=== PATIENT | male | born 1975 | race African-American/Black ===

== ENCOUNTER 2019-11-10 23:25 | Emergency (ER) | payer SELFPAY ==
[2019-11-10 23:41] VITALS: BP 125/75
[2019-11-11] MEDS ORDERED: TETRACAINE HCL 0.5% OPH SOLN 4 ML OD ONE (02:45)
--- NOTE | 2019-11-11 03:01 | ER Document Report ---
ED General - General Chief Complaint: Foreign Body in Eye Stated Complaint: METAL IN EYE Time Seen by Provider: 11/11/19 02:45 Notes: 44-year-old male presents with left eye pain that started yesterday. Patient was cutting metal without eye protection and feels as though something got into his left eye. Patient denies wearing glasses or contacts. Patient will not allow for exam at this time. Denies fever. TRAVEL OUTSIDE OF THE [place] IN LAST 30 DAYS: No - Related Data Allergies/Adverse Reactions: No Known Allergies Allergy (Unverified 11/11/19 00:30) Past Medical History - General Information source: Patient - Social History Smoking Status: Current Every Day Smoker Family History: None Patient has suicidal ideation: No Patient has homicidal ideation: No Review of Systems - Review of Systems Notes: Constitutional: Negative for fever. HENT: Negative for sore throat. Eyes: Positive for foreign body sensation in left eye. Negative for visual changes. Cardiovascular: Negative for chest pain. Respiratory: Negative for shortness of breath. Gastrointestinal: Negative for abdominal pain, vomiting or diarrhea. Genitourinary: Negative for dysuria. Musculoskeletal: Negative for back pain. Skin: Negative for rash. Neurological: Negative for headaches, weakness or numbness. 10 point ROS negative except as marked above and in HPI. Physical Exam - Vital signs Vitals: Temp Pulse Resp BP Pulse Ox 98.3 F 73 20 125/75 100 11/10/19 23:39 11/10/19 23:39 11/10/19 23:39 11/10/19 23:39 11/10/19 23:39 - Notes Notes: GENERAL: Well-appearing, well-nourished and in no acute distress. HEAD: Atraumatic, normocephalic. EYES: Right eye - EOM intact, no erythema, no foreign body seen. Pupils equal round and reactive to light, extraocular movements intact, sclera anicteric, conjunctiva are normal. NECK: Normal range of motion, supple without lymphadenopathy or JVD. EXTREMITIES: Normal range of motion, no pitting or edema. No clubbing or cyanosis. NEUROLOGICAL: Cranial nerves II through XII grossly intact. Normal speech, normal gait. PSYCH: Normal mood, normal affect. SKIN: Warm, Dry, normal turgor, no rashes or lesions noted. Course - Re-evaluation Re-evalutation: 11/11/19 nontoxic, well-appearing 44-year-old male presents with foreign body sensation to left eye and left eye pain since yesterday. Patient was cutting metal without eye protection and states he feels like something got into his eye. Patient does not wear contacts or wears glasses. Patient will not currently allow for exam of eye. Tetracaine drops were placed. Visual acuity and eye box was ordered. Explained to pt that we would have to a visual acuity and fluorescin exam. 11/11/19 03:15 RN informed me that pt walked out saying that we were taking too long five minutes after I evaluated the pt. - Vital Signs Vital signs: Temp Pulse Resp BP Pulse Ox 98.3 F 73 20 125/75 100 11/10/19 23:39 11/10/19 23:39 11/10/19 23:39 11/10/19 23:39 11/10/19 23:39 Discharge - Discharge Clinical Impression: Left before treatment completed, Left eye pain Condition: Stable Disposition: ELOPED
== END 2019-11-11 03:51 | disposition left against medical advice (07) ==
LOC: ER 11-11 03:13
DX: Z53.21 Procedure and treatment not carried out due to patient leaving prior to being seen by health care provider (principal); H57.12 Ocular pain, left eye; T15.92XA Foreign body on external eye, part unspecified, left eye, initial encounter; W22.8XXA Striking against or struck by other objects, initial encounter; F17.200 Nicotine dependence, unspecified, uncomplicated
CPT/HCPCS: 99281; J3490